=== PATIENT | female | born 1950 | race Caucasian/White ===

== ENCOUNTER → 2020-05-21 | Outpatient (CLI) | payer OTHER | LOC: LAB 14:31 | PROVIDERS: ATTEND Neuromusculoskeletal Medicine & OMM | DX: R05 Cough (principal); R09.89 Other specified symptoms and signs involving the circulatory and respiratory systems; R51 Headache; M79.10 Myalgia, unspecified site; Z20.818 Contact with and (suspected) exposure to other bacterial communicable diseases ==